=== PATIENT | male | born 1995 | race Caucasian/White ===

== ENCOUNTER → 2020-03-11 | Outpatient (CLI) | payer BC ==
[2020-03-11 15:07] LABS: SEMEN VOLUME 2.3 ML (1.5-5.0)
== END ==
LOC: LAB 14:13
PROVIDERS: ATTEND Family Medicine
DX: N46.9 Male infertility, unspecified (principal)
CPT/HCPCS: 89320

== ENCOUNTER → 2020-05-24 | Outpatient (CLI) | payer BC | LOC: LAB 10:51 | PROVIDERS: ATTEND Obstetrics & Gynecology Reproductive Endocrinology | DX: Z01.812 Encounter for preprocedural laboratory examination (principal); Z11.4 Encounter for screening for human immunodeficiency virus [HIV]; Z11.9 Encounter for screening for infectious and parasitic diseases, unspecified; Z11.59 Encounter for screening for other viral diseases | CPT/HCPCS: 86592; 86703; 86705; 86803; G0499; 36415; 86706 ==